=== PATIENT | male | born 1965 | race Caucasian/White ===

== ENCOUNTER 2020-06-11 13:17 | Emergency (ER) | payer OTHER ==
[2020-06-11 13:24] VITALS: BP 152/107; PULSE 72; TEMP 98.1; BMI 33.5
[2020-06-11] MEDS ORDERED: IBUPROFEN 400 MG TABLET (FP) PO ONE ×2 (13:38→13:44)
[2020-06-11] MEDS ORDERED: ACETAMINOPHEN 325 MG TABLET (FP) PO ONE (13:38)
[2020-06-11] MEDS ORDERED: LIDOCAINE 5% TOPICAL PATCH TP ONE (13:41)
[2020-06-11] MEDS ORDERED: ACETAMINOPHEN 325 MG TABLET (FP) ONE (13:44)
[2020-06-11] MEDS ORDERED: LIDOCAINE 5% TOPICAL PATCH ONE (13:44)
[2020-06-11] MEDS ORDERED: LIDOCAINE PATCH REMOVAL MC SCH (22:00)
== END 2020-06-11 14:24 | disposition home or self-care (01) ==
LOC: FER 13:17
DX: M70.41 Prepatellar bursitis, right knee (principal); M54.5 Low back pain
CPT/HCPCS: 99283-25